=== PATIENT | male | born 1940 | race Caucasian/White ===

== ENCOUNTER 2016-11-18 13:55 | Observation (INO) | payer OTHER ==
[2016-11-18] MEDS ORDERED: NS 1,000 ML IV ONE ×2 (14:07→14:41)
[2016-11-18 14:14] LABS: % IMMATURE GRANULYOCYTES 0.4 % (0.0-1.1); ABSOLUTE IMMATURE GRANULOCYTES 0.04 10^3/uL (0.00-0.10); ADD DIFF? NO; ADD MORPH? NO; ADD SCAN? NO; ATYPICAL LYMPHOCYTE FLAG 0 (0-99); FRAGMENT RBC FLAG 0 (0-99); HEMATOCRIT 42.2 % (40.0-51.0); HEMOGLOBIN 14.7 g/dL (13.7-17.5); LEFT SHIFT FLG 0 (0-99); LIPEMIA HEMOLYSIS FLAG 90 (0-99); MEAN CELL HEMOGLOBIN 30.6 pg (27.9-34.1); MEAN CELL HEMOGLOBIN CONCENTR. 34.8 g/dL (32.4-36.7); MEAN CELL VOLUME 87.7 fL (81.5-99.8); MEAN PLATELET VOLUME 8.9 fL (8.7-11.7); PLATELET CLUMPS FLAG 0 (0-99); PLATELET COUNT 374 10^3/uL (150-400); RED BLOOD CELL COUNT 4.81 10^6/uL (4.40-6.38); RED CELL DISTRIBUTION WIDTH 12.7 % (11.5-15.2)
--- NOTE | 2016-11-18 14:14 | CPEKG ---
Heart Rate: 66 RR Interval: 909 P-R Interval: 140 QRSD Interval: 102 QT Interval: 416 QTC Interval: 436 P Davenport: 12 QRS Davenport: 39 T Wave Davenport: 20 EKG Severity - NORMAL ECG - EKG Impression: SINUS RHYTHM Electronically Signed By: Nadir Morin 18-Nov-2016 15:30:55
[2016-11-18 14:21] LABS: INR 1.05 (0.83-1.16); PROTIME(PATIENT) 13.4 SEC (12.0-15.0)
[2016-11-18 14:22] LABS: APTT 28.6 SEC (23.0-38.0)
[2016-11-18 14:23] LABS: ANION GAP 13 mEq/L (8-16); CARBON DIOXIDE 22 mEq/l (22-31); CHLORIDE 104 mEq/L (97-110); CREATININE 1.4 mg/dL (0.7-1.3); GLOMERULAR FILTRATION RATE 49; GLUCOSE 167 mg/dL (70-100); POTASSIUM 4.3 mEq/L (3.5-5.2); SODIUM 139 mEq/L (134-144)
[2016-11-18 14:35] LABS: TROPONIN I < 0.012 ng/mL (0.000-0.034)
--- NOTE | 2016-11-18 14:44 | EDPHY ---
H & P Stated Complaint: hypotensive, pale diaphoretic Source: Patient Exam Limitations: No limitations - Personal History Current Tetanus/Diphtheria Vaccine: Yes Current Tetanus Diphtheria and Acellular Pertussis (TDAP): Yes - Medical/Surgical History Hx Asthma: No Hx Chronic Respiratory Disease: No Hx Diabetes: No Hx Cardiac Disease: No Hx Renal Disease: No Hx Cirrhosis: No Hx Alcoholism: No Hx HIV/AIDS: No Hx Splenectomy or Spleen Trauma: No Other PMH: HTN, cataracts, BPH, nasal polyps - Family History Significant Family History: No pertinent family hx - Social History Smoking Status: Never smoked Alcohol Use: None Drug Use: None <Nadir Morin - Last Filed: 11/18/16 15:28> <Jc Irvin - Last Filed: 11/18/16 17:40> Time Seen by Provider: 11/18/16 14:08 HPI/ROS: This patient had a presyncopal episode across the [place] in the [facility] while seeing Dr. rene for a routine annual exam. She explains that the patient was fasting for cholesterol and while being interviewed he develops pallor, diaphoresis lightheadedness and dim vision. His symptoms improved when he was placed in supine position he was wheeled over by cart for further evaluation in our emergency department. The patient admits that he did start with a dry cough 2 days ago that seemed mild him. No other new symptoms prior to today's visit. He has not had an episode of presyncope before. He did have an episode of dizziness 5 years ago workup with a negative Holter monitor and normal carotid Dopplers at that time. After workup the prior episode 5 years ago of dizziness was thought to have been vertigo. The patient has not had any recent vertigo symptoms prior to today's presyncopal episode. ROS: He did notice any fevers or chills at home. He did not check his temperature recently. He did feel more fatigued than usual. No other constitutional symptoms. HEENT: No URI symptoms. No sinus pain. No sore throat. Pulmonary: No pleuritic pain. He did notice dyspnea. Cardiovascular: No heart palpitations or chest pain. No lower extremity swelling or calf pain. : No urinary symptoms. No testicular pain or swelling. Integumentary: Diaphoretic and pale with today's episode. No rash. Psychiatric: Denies any complaints Endocrine: No complaints Complete review of symptoms is otherwise negative. (Nadir Morin) - Social History Additional Social History: Works as a business support professional. Lives alone. (Nadir Morin) - Physical Exam Exam: Vital signs notable for hypoxia to 88% on room air pulse 67, blood pressure 108/ 67 afebrile. General Appearance: Alert, no distress. Eyes: Pupils equal and round no pallor or injection. ENT, Mouth: Mucous membranes moist. Respiratory: Diminished at right base. There are no retractions, lungs are clear to auscultation. Cardiovascular: Regular rate and rhythm. No murmur gallop or rub. Gastrointestinal: Abdomen is soft and nontender, no masses, bowel sounds normal. Neurological: GCS 15 Skin: Warm and dry, no rashes. Musculoskeletal: Neck is supple nontender. Extremities are symmetrical, full range of motion. Psychiatric: Mood and affect normal DIFFERENTIAL DIAGNOSIS: After history and physical exam differential diagnosis was considered for presyncopal while fasting, pneumonia, PE, IA, dysrhythmia ( Nadir Morin) Constitutional: Initial Vital Signs O2 Sat (%) 93 11/18/16 14:00 O2 Delivery Mode Room Air O2 (L/minute) 3 Allergies/Adverse Reactions: calcium carbonate Allergy (Severe, Verified 11/18/16 14:12) Other-Enter Comments Sulfa (Sulfonamide Antibiotics) Allergy (Verified 11/18/16 14:12) Home Medications: Medication Instructions Recorded Acetaminophen [Tylenol ES 500 mg 500 mg PO Q6 PRN 09/30/15 (*)] Atenolol [Tenormin 25 mg (*)] 12.5 mg PO HS 09/30/15 Doxazosin Mesylate 2 mg PO HS 09/30/15 Naproxen Sodium [Aleve 220 MG (*)] 220 mg PO BID PRN 09/30/15 Ranitidine HCl 150 mg PO DAILY PRN 09/30/15 Tamsulosin HCl 0.4 mg PO HS 09/30/15 Triamterene/Hctz 75/50 [Maxzide 0.25 tab PO DAILY 09/30/15 75-50 mg Tab (*)] Medical Decision Making - Diagnostics Imaging: I viewed and interpreted images myself <Nadir Morin - Last Filed: 11/18/16 15:28> - Diagnostics Imaging: Discussed imaging studies w/ call out operator Radiologist, I viewed and interpreted images myself <Jc Irvin - Last Filed: 11/18/16 17:40> - Diagnostics EKG Interpretation: 12 lead EKG performed at 2:12 p.m. reveals sinus rhythm at 66 Intervals: Normal Wever: Normal ST segments: Normal Overall assessment: Normal EKG (Nadir Morin) Imaging Results: Imaging Impressions Chest X-Ray 11/18/16 14:08 Impression: 1. Mild right pleural effusion with adjacent compressive atelectatic change. Consolidation is felt to be possible but less likely. 2. Interval fractures of the posterior lateral left sixth and seventh ribs with callus formation. Chest/Thorax CTA 11/18/16 14:26 Impression: 1. No evidence of pulmonary embolus using CT protocol. 2. Mild right pleural effusion with loculated component and adjacent compressive atelectatic change. 3. Peribronchial thickening in the perihilar region bilaterally more prominent to the right lower lobe. Rule out underlying bronchitis, viral process, or reactive airways disease. 4. Mildly enlarged spleen. 5. Incidental pericardial cyst on the right. 6. Reactive lymph nodes suspected around the right hilum, subcarina, and distal right paratracheal region. Findings discussed with Dr. Erick Irvin at 15:53 hour, 11/18/2016. Chest x-ray: Right basilar infiltrate with small effusion by my interpretation. (Nadir Morin) ED Course/Re-evaluation: IV normal saline bolus, blood work and blood cultures Patient placed in on the monitor with stable sinus rhythm without dysrhythmia. He maintains normal mental status since arrival from the [facility]. A review of his labs reveals leukocytosis and significantly elevated D-dimer. Inverted CT angio chest rule out PE and started Rocephin for infiltrate right base. Patient will need to be admitted for pneumonia versus PE with pneumonia. I counseled him regarding this. Patient is also true Zithromax p.o. I spoke with Dr. Nita Reyes, hospitalist at [facility] accepts patient for transfer to PCU. Discussion: Patient with pneumonia presyncope warranting admission with CT angio results pending. I spoke with Dr. Irvin, oncoming emergency physician regarding the pending CT angio test. He will follow up on this test result and relate this study outcome to Dr. Reyes. He will also initiate treatment for PE if [address] is [address] angio. (Nadir Morin) I took over care of this patient at 3:15 p.m.. The patient is awaiting results of a CT angiogram of his chest to evaluate for pulmonary embolism. 4:15 p.m., patient evaluated by myself. Resting comfortably at this time. Patient currently asymptomatic. Results of his CT scan discussed with him. He is waiting transfer by ambulance to [facility]. He has been admitted to the hospitalist service. The admitting hospitalist, Dr. Nita Reyes was notified of the results of his CT scan. 4:30 p.m., the patient was to be transferred by ambulance to [facility]. He is now refusing this. He wants his friend to take him over there. In my professional opinion he has capacitance to make decisions and clearly understands the risks as well as my concerns including but not limited to low blood oxygen levels, which I discussed in detail with him, of not being transported to [facility] by ambulance. A friend will take him over to [facility] shortly. His remaining emergency department course under my care has been uneventful. (Jc Irvin) - Data Points Laboratory Results: Laboratory Results 11/18/16 14:00 11/18/16 14:00 11/18/16 11/18/16 11/18/16 14:00 14:00 14:00 WBC RBC Hgb POC Hgb Hct POC Hct MCV MCH MCHC RDW Plt Count MPV Neut % (Auto) Lymph % (Auto) [place] % (Auto) Eos % (Auto) Baso % (Auto) Nucleat RBC Rel Count Absolute Neuts (auto) Absolute Lymphs (auto) Absolute Monos (auto) Absolute Eos (auto) Absolute Basos (auto) Absolute Nucleated RBC Immature Gran % Immature Gran # PT INR APTT D-Dimer POC Sodium Sodium 139 mEq/L mEq/L (134-144) POC Potassium Potassium 4.3 mEq/L mEq/L (3.5-5.2) POC Chloride Chloride 104 mEq/L mEq/L (97-110) Carbon Dioxide 22 mEq/l mEq/l (22-31) Anion Gap 13 mEq/L mEq/L (8-16) POC BUN BUN 17 mg/dL mg/dL (7-23) Creatinine 1.4 mg/dL H mg/dL (0.7-1.3) POC Creatinine Estimated GFR 49 Glucose 167 mg/dL H mg/dL (70-100) POC Glucose Calcium 9.0 mg/dL mg/dL (8.5-10.4) Troponin I < 0.012 ng/mL ng/mL (0.000-0.034) NT-Pro-B Natriuret Pep 218 pg/mL pg/mL (0-450) Lipase 37 IU/L IU/L (23-300) 11/18/16 11/18/16 11/18/16 14:00 14:00 13:56 WBC 11.12 10^3/uL H 10^3/uL (3.80-9.50) RBC 4.81 10^6/uL 10^6/uL (4.40-6.38) Hgb 14.7 g/dL g/dL (13.7-17.5) POC Hgb 14.6 gm/dL gm/dL (13.7-17.5) Hct 42.2 % % (40.0-51.0) POC Hct 43 % % (40-51) MCV 87.7 fL fL (81.5-99.8) MCH 30.6 pg pg (27.9-34.1) MCHC 34.8 g/dL g/dL (32.4-36.7) RDW 12.7 % % (11.5-15.2) Plt Count 374 10^3/uL 10^3/uL (150-400) MPV 8.9 fL fL (8.7-11.7) Neut % (Auto) 71.1 % % (39.3-74.2) Lymph % (Auto) 14.9 % L % (15.0-45.0) [place] % (Auto) 5.6 % % (4.5-13.0) Eos % (Auto) 7.4 % % (0.6-7.6) Baso % (Auto) 0.6 % % (0.3-1.7) Nucleat RBC Rel Count 0.0 % % (0.0-0.2) Absolute Neuts (auto) 7.91 10^3/uL H 10^3/uL (1.70-6.50) Absolute Lymphs (auto) 1.66 10^3/uL 10^3/uL (1.00-3.00) Absolute Monos (auto) 0.62 10^3/uL 10^3/uL (0.30-0.80) Absolute Eos (auto) 0.82 10^3/uL H 10^3/uL (0.03-0.40) Absolute Basos (auto) 0.07 10^3/uL 10^3/uL (0.02-0.10) Absolute Nucleated RBC 0.00 10^3/uL 10^3/uL (0-0.01) Immature Gran % 0.4 % % (0.0-1.1) Immature Gran # 0.04 10^3/uL 10^3/uL (0.00-0.10) PT 13.4 SEC SEC (12.0-15.0) INR 1.05 (0.83-1.16) APTT 28.6 SEC SEC (23.0-38.0) D-Dimer 3.43 ug/mLFEU H ug/mLFEU (0.00-0.50) POC Sodium 140 mEq/L mEq/L (134-144) Sodium POC Potassium 4.1 mEq/L mEq/L (3.3-5.0) Potassium POC Chloride 104 mEq/L mEq/L (97-110) Chloride Carbon Dioxide Anion Gap POC BUN 17 mg/dL mg/dL (7-23) BUN Creatinine POC Creatinine 1.5 mg/dL H mg/dL (0.7-1.3) Estimated GFR Glucose POC Glucose 172 mg/dL H mg/dL (70-100) Calcium Troponin I NT-Pro-B Natriuret Pep Lipase Medications Given: Discontinued Medications Azithromycin (Zithromax) 500 mg PO EDNOW ONE PRN Reason: Protocol Stop: 11/18/16 15:13 Last Admin: 11/18/16 15:26 Dose: 500 mg Sodium Chloride (Ns) 1,000 mls @ 0 mls/hr IV EDNOW ONE; Wide Open PRN Reason: Protocol Stop: 11/18/16 14:08 Last Admin: 11/18/16 14:08 Dose: 1,000 mls Ceftriaxone Sodium 1 gm/ (Sodium Chloride) 100 mls @ 200 mls/hr IV EDNOW ONE PRN Reason: Protocol Stop: 11/18/16 15:04 Last Admin: 11/18/16 14:59 Dose: 100 mls Sodium Chloride (Ns) 1,000 mls @ 0 mls/hr IV ONCE ONE PRN Reason: Wide Open Stop: 11/18/16 14:42 Last Admin: 11/18/16 14:53 Dose: 1,000 mls Point of Care Test Results: 11/18/16 13:56 POC Sodium 140 POC Potassium 4.1 POC Chloride 104 POC BUN 17 POC Creatinine 1.5 H POC Glucose 172 H Departure <Nadir Morin C - Last Filed: 11/18/16 15:28> <Jc Irvin - Last Filed: 11/18/16 17:40> - Departure Disposition: [facility] Inpatient Acute Clinical Impression: Pre-syncope, Hypoxia, Pneumonia Condition: Fair
[2016-11-18] MEDS ORDERED: IOPAMIDOL (ISOVUE 370) 100 ML BTL IV ONE (14:51)
[2016-11-18] MEDS ORDERED: AZITHROMYCIN 250 MG TAB PO ONE (15:12)
[2016-11-18] MEDS ORDERED: ONDANSETRON 4 MG/2 ML VIAL IVP PRN (19:36)
[2016-11-18] MEDS ORDERED: ACETAMINOPHEN 325 MG TAB PO PRN (19:36)
[2016-11-18] MEDS ORDERED: ONDANSETRON DISINTEGRATING 4 MG TAB PO PRN (19:36)
[2016-11-18] MEDS ORDERED: NS 1,000 ML IV SCH (20:15)
--- NOTE | 2016-11-18 20:40 | GHP ---
[f rep st] HISTORY AND PHYSICAL DATE OF ADMISSION: 11/18/2016 CHIEF COMPLAINT: 1. Pneumonia. 2. Hypotension. HISTORY OF PRESENT ILLNESS: A 76-year-old male with history of hypertension, BPH, nasal polyps, who presented to his PCP for a normal physical today. He became pale, diaphoretic and presyncopal. Initial blood pressure was 76/48, repeat was 80/58. Per his photocopying equipment mechanic, he has not been feeling well for two weeks. Two weeks ago, he awoke from sleep with right-sided chest pain and confused. Since then it has been, but not associated with any radiation, nausea , or numbness. Decreased PO intake. Nonproductive cough for the past 2-3 days. No change in BP. 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 No F/C/S/N/V/D. REVIEW OF SYSTEMS: I completed a 10-point review of systems, negative except as noted in HPI. PAST MEDICAL HISTORY: Hypertension, BPH, nasal polyps, cataract. PAST SURGICAL HISTORY: Nasal polyp, eye surgery, cholecystectomy. FAMILY HISTORY: Mother with gallbladder cancer. SOCIAL HISTORY: No illicits, tobacco or alcohol. 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 His photocopying equipment mechanic is here with him, and she actually lives in a different home in [place]. He lives in [place]. HOME MEDICATIONS: Triamterene/HCTZ 75/50 mg daily, tamsulosin 0.5 mg at bedtime , aspirin 150 mg p.r.n., naproxen p.r.n., doxazosin 2 mg at bedtime, atenolol 12.5 mg at bedtime, Tylenol. PHYSICAL EXAMINATION: VITAL SIGNS: Temperature 36.9, blood pressure now 128/ 70 (initially 76/46), now 108/79, heart rate in the 90s, respirations 16, 93% on room. GENERAL: Overweight male, well appearing, no acute distress. HEENT: PERRLA. EOMI. Mildly dry mucous membranes. CV: Regular rate and rhythm. No murmurs, gallops, rubs. LUNGS: Decreased breath sounds right lower base. ABDOMEN: Obese, soft, nontender, nondistended. Positive bowel sounds. : No suprapubic tenderness. MUSCULOSKELETAL: 5/5 upper and lower extremity strength. NEURO: 2 through 12 intact. PSYCHIATRIC: Alert and oriented x3. LABORATORY DATA: WBC 11, hemoglobin 14, hematocrit 42, platelets 374. Sodium 139, potassium 4.3, chloride 104, creatinine is 1.4, glucose 167. Troponin less than 0.012. BNP is 218. Lipase is 37. Creatinine 1.4, baseline 0.9. D- dimer 3.43. EKG, personally reviewed by me: Normal sinus rhythm, ST flattening in V2, V3. Chest x-ray is personally reviewed by me: Mild right pleural effusion, costophrenic angle is blunted. CTA: No evidence of PE. Mild right pleural effusion with loculated component. Peribronchial thickening. Mildly enlarged spleen. ASSESSMENT AND PLAN: 1. Hypotension: Differential includes cardiac versus infection versus vasovagal. His creatinine and recent decreased p.o. intake are suggestive of prerenal. Check urine lytes. Troponin and EKG negative for ischemia. No evidence of PE on CTA. IVFs. 2. Right lower lobe pneumonia: CXR with effusion mildly loculated. Cont IV abx at this time. Can consider CT chest to further eval, but doing well now with min leukocytosis and afebrile. Check a procalcitonin and respiratory culture.Blood cultures are pending. 3. Acute kidney injury: Baseline is 0.9. Endorses decreased p.o. intake. IV fluids, urine lytes, repeat in the morning. 4. Hypertension: Hold antihypertensives with hypotension. 5. Benign prostatic hypertrophy: Again, hold home medications with hypotension. 6. Diet: Regular. 7. Deep venous thrombosis prophylaxis: Lovenox. 8. Disposition: The patient warrants observation admission, given acute pneumonia. Requires IV antibiotics and IV fluids. /[id number]/MODL MTDD
[2016-11-18] MEDS ORDERED: FAMOTIDINE 20 MG TAB PO PRN (21:00)
[2016-11-19 05:22] LABS: HEMATOCRIT 37.5 % (40.0-51.0); HEMOGLOBIN 12.7 g/dL (13.7-17.5); MEAN CELL HEMOGLOBIN 30.9 pg (27.9-34.1); MEAN CELL HEMOGLOBIN CONCENTR. 33.9 g/dL (32.4-36.7); MEAN CELL VOLUME 91.2 fL (81.5-99.8); RED BLOOD CELL COUNT 4.11 10^6/uL (4.40-6.38); RED CELL DISTRIBUTION WIDTH 12.6 % (11.5-15.2)
[2016-11-19 06:14] LABS: ANION GAP 10 mEq/L (8-16); CALCIUM 8.4 mg/dL (8.5-10.4); CARBON DIOXIDE 23 mEq/l (22-31); CHLORIDE 107 mEq/L (97-110); CREATININE 1.2 mg/dL (0.7-1.3); GLOMERULAR FILTRATION RATE 59; GLUCOSE 90 mg/dL (70-100); SODIUM 140 mEq/L (134-144)
[2016-11-19] MEDS ORDERED: AZITHROMYCIN 250 MG TAB PO SCH (09:00)
[2016-11-19] MEDS ORDERED: ENOXAPARIN 40 MG/0.4 ML SYR SC SCH (09:00)
[2016-11-19] MEDS ORDERED: ALBUTEROL 3 ML DEYVIAL IH PRN (09:46)
--- NOTE | 2016-11-19 09:51 | HOSPPROG ---
Hospitalist Progress Note Assessment/Plan: Acute hypoxemic respiratory failure in setting of rhinovirus / enterovirus and right pleural effusion - suspect pleural effusion is chronic as these were present on CT in 09/2015 and the loculated appearance suggests some degree of chronicity. He is still requiring 2 LPM O2 satting in low 90's. PCT 0.08 making bacterial process unlikely. Also suspect element of SMILEY and obesity hypoventilation. -D/C atbx -add scheduled duonebs and prn albuterol nebs -wean O2 as able, may need home O2 -check echo for further workup of pleural effusion -needs outpt sleep study Hypotension - resolved with IVF's -echo as above WINSTON - resolved with IVF's Dispo - change to inpt, will require ongoing hospitalization for further management and evaluation of his acute respiratory failure and pleural effusion Subjective: Pt feel okay, has audible wheezing. Denies CP, SOB, or fever. Some coughing. Still requiring O2. Objective: Vital Signs Temp Pulse Resp BP Pulse Ox 36.6 C 66 16 134/81 H 95 11/19/16 07:19 11/19/16 07:19 11/19/16 07:19 11/19/16 07:19 11/19/16 07:19 Microbiology 11/18/16 23:45 Respiratory Panel (PCR) - Final Nasal, Sinus - Swab Human Rhinovirus/Enterovirus Laboratory Results 11/19/16 03:41 11/19/16 03:41 11/18/16 11/19/16 11/20/16 05:59 05:59 05:59 Intake Total 3500 Balance 3500 PT 13.4 SEC (12.0-15.0) 11/18/16 14:00 INR 1.05 (0.83-1.16) 11/18/16 14:00 - Physical Exam Constitutional: no apparent distress, obese Eyes: PERRL Ears, Nose, Mouth, Throat: moist mucous membranes Cardiovascular: regular rate and rhythym Respiratory: no respiratory distress, other (diminished at bases) Gastrointestinal: normoactive bowel sounds, soft, non-tender abdomen Skin: warm Musculoskeletal: full muscle strength Neurologic: AAOx3 Psychiatric: interacting appropriately ICD10 Worksheet Patient Problems: Problems Problem Status Onset Hypoxia Acute Pneumonia Acute Pre-syncope Acute Cholecystitis Acute
[2016-11-19] MEDS ORDERED: guaiFENesin 600 MG TAB.ER PO SCH (10:00)
[2016-11-19 11:31] VITALS: BP 139/109; PULSE 90; RESP 16; TEMP 98.6; O2SAT 90
[2016-11-19] MEDS ORDERED: IPRATROPIUM/ALBUTEROL 3 ML DEYVIAL IH SCH (12:00)
--- NOTE | 2016-11-19 14:03 | ASMTCMCOM ---
CM Note CM Note Notes: Pt is a 76 y/o man admitted w/ presyncope, pneumonia, elevated d-dimer and hypoxia. Pt will most likely d/c independent w/ supportive when medically stable. No therapies ordered at this time. CM available for changes. Date Signed: 11/19/2016 02:02 PM Electronically Signed By:BUDDY Benedict
--- NOTE | 2016-11-19 14:46 | ECHO ---
[email or web address] [address] [address] [address]: [phone] Fax: Transthoracic Echocardiogram Name: ASHWIN THOMAS MR#: [id number] Study Date: 11/19/2016 Study Time: 11:06 AM Date of : 1940 Age: 76 year(s) Height: 172.7 cm (68 in.) Weight: 100.7 kg (222 lb.) BSA: 2.14 m2 Gender: Male Examination: Echo Indication: Image Quality: Technically Difficult Contrast: Requested by: Celeste Hendricks BP: 134 mmHg/81 mmHg Heart Rate: 80 bpm Rhythm: Normal sinus rhythm Indication: Procedure Staff Cinder Dump Crane Operator: Mellissa Rivas Reading Physician: Dirk Hall Conclusions: Normal size left ventricle. Mild concentric LV hypertrophy. Normal global systolic LV function. The ejection fraction, measured by Simpsons method, is 72 %. Grade 1 diastolic dysfunction (abnormal relaxation). There are no significant valvular abnormalities. Probable anteroapical fat pad. Cannot rule out small effusion. No suggestion of tamponade. Measurements: Chambers Valvular Assessment AV/MV Valvular Assessment TV/PV Normal Normal Normal Name Value Range Name Value Range Name Value Range Ao Kaylah (MM): 3.4 cm (2.2 cm-3.7 AV Vmax: 1.58 m/s (1 m/s-1.7 PV Vmax: 1.04 cm/s (0.6 m/s-0.9 cm) m/s) m/s) IVSd (2D): 1.1 cm (0.6 cm-1.1 AV maxP mmHg ( - ) PV PGmax: 4 mmHg ( - ) cm) LVOT Vmax: 1.29 m/s (0.7 m/s-1.1 LVDd (2D): 4.4 cm (4.2 cm-5.9 m/s) cm) MV E Vmax: 0.74 cm/s ( - ) LVDs (2D): 2.7 cm (2.1 cm-4 MV A Vmax: 1.13 cm/s ( - ) cm) MV E/A: 0.65 ( - ) LVPWd (2D): 1.1 cm (0.6 cm-1 cm) LVEF (BP): 72 % (>=55 %) RVDd(2D): 3.3 cm (1.9 cm-3.8 cmmm) Continued Measurements: Chambers Valvular Assessment AV/MV Name Value Name Value Patient: ASHWIN THOMAS Study Date: 11/19/2016 Page 1 of 2 11:06 AM LA Area: 21.4 cm2 MV DecTime: 296 LA Volume: 46 ml MV E' Septal: 0.07 m/s LA Volume Index: 21.5 ml/m2 MV E/E' Septal: 11.30 TAPSE: 2.3 cm MV E/E' Lateral: 9.40 RA Area: 16.0 cm2 Additional Vessels Name Value Ao Ascendin.6 cm Findings: Left Ventricle: Normal size left ventricle. Mild concentric LV hypertrophy. Normal global systolic LV function. The ejection fraction, measured by Simpsons method, is 72 %. No regional wall motion abnormality. All scored wall segments are normal. Grade 1 diastolic dysfunction (abnormal relaxation). Right Ventricle: Normal size right ventricle. Normal RV function. Left Atrium: The left atrium is normal in size. Right Atrium: The right atrium is borderline dilated. Mitral Valve: The mitral valve is normal in appearance. There is no significant mitral valve regurgitation. Aortic Valve: The aortic valve is tri-leaflet and functions normally. There is no aortic valve regurgitation. Tricuspid Valve: The tricuspid valve appears normal. There is no tricuspid valve regurgitation. Pulmonic Valve: Pulmonary valve not well visualized. Pericardium: Pericardial effusion vs fat pad. Probable anteroapical fat pad. Cannot rule out small effusion. No suggestion of tamponade. (No Signature Object) Wall Motion Scores Patient: ASHWIN THOMAS Study Date: 11/19/2016 Page 2 of 2 11:06 AM [id number]
--- NOTE | 2016-11-20 01:41 | GDS ---
[f rep st] DISCHARGE SUMMARY DISCHARGE DIAGNOSES: 1. Hypoxemia, resolved. 2. Upper respiratory infection secondary to rhinovirus and enterovirus. 3. Right pleural effusion, likely chronic. 4. Hypotension, resolved with IV fluids. 5. Acute kidney injury, resolved with IV fluids. HISTORY: For details please see dictated history and physical dated November 18, 2016. In brief, t he patient is a 76-year-old male with a history of hypertension, who presented to the emergency depar tment from his primary care physician's office where he planned to have a physical exam and was found to be diaphoretic and presyncopal with a blood pressure of 80/58. He was sent to the emergency depa rtment and admitted for further evaluation. HOSPITAL COURSE: The patient is admitted to the PCU. He had no hypotension here in the hospital. H is blood pressure on arrival was 108/67. He initially required 3 L of oxygen, though he was weaned o ff oxygen and maintained sats greater than 90% on room air at the time of discharge. I suspect his h ypoxemia is likely secondary to his acute upper respiratory viral infection. However, he very likely has underlying sleep apnea and possibly obesity hypoventilation syndrome playing a role. I recommen d he have an outpatient sleep study and close followup with his primary care physician. With respect to his right pleural effusion, this is mild and appeared loculated. I suspect this is chronic as it was present on his imaging during his hospitalization last year, as well. An echocardiogram is perf ormed for further evaluation. He does have grade 1 diastolic dysfunction, though he has no evidence of acute heart failure with a normal BNP and no evidence of pulmonary edema on chest x-ray. He has n ormal left ventricular function with an ejection fraction of 72%. No regional wall motion abnormalit ies. A CT pulmonary angiogram is negative for pulmonary embolism. Did show some peribronchial thick ening, likely secondary to his viral URI. At the time of discharge, he is hemodynamically stable. H is oxygen saturation is 92% with ambulation. DISPOSITION: Patient is discharged home in stable condition. DISCHARGE MEDICATIONS: Please see [facility] for complete updated outpatient medication list. New med ications on discharge include guaifenesin 1200 mg p.o. b.i.d. and albuterol 2 puffs inhaled q.4 hours p.r.n. Will continue all other outpatient medications as prescribed. FOLLOWUP: Follow up with Shankar Kruse, primary care in 3-5 days. /[id number]/MODL
--- NOTE | 2016-11-20 09:21 | ASDISCHSUM ---
Discharge Information Plan Status:Home with No Needs Medically Cleared to Leave:11/19/2016 Discharge Date:11/19/2016 04:45 PM CM D/C Disposition: ADT D/C Disposition:Home, Routine, Self-Care Projected Discharge Date:11/19/2016 12:00 AM Transportation at D/C: Discharge Delay Reason: Follow-Up Date:11/19/2016 12:00 AM Discharge Slot: Final Diagnosis: Placement Information Patient Contact Information Contact Name:GODFREY Relationship:Stephy Address: Work Phone: City:[place] Alternate Phone: State[place] Code[place] Email: Financial Information Financial Class:Medicare Advantage Plans Primary Plan Desc:[facility] ADV[employer]AGE PLANS Primary Plan Number:[id number] Secondary Plan Desc: Secondary Plan Number: Assessment Information [facility] CM Progress Note CM Note CM Note Notes: Pt is a 76 y/o man admitted w/ presyncope, pneumonia, elevated d-dimer and hypoxia. Pt will most likely d/c independent w/ supportive when medically stable. No therapies ordered at this time. CM available for changes. Date Signed: 11/19/2016 02:02 PM Electronically Signed By:BUDDY Benedict Intervention Information Intervention Type:*TRUDY-Signed Date of Service:11/19/2016 12:39 PM Patient Type:Observation Staff Member:Norma Becerril Hours: Discipline: Severity: Comment:
== END 2016-11-19 16:45 | disposition home or self-care (01) ==
LOC: SUPCPDRO 13:55 → CED 13:55 → INTOOBSV 15:12 → CEDHOLD 15:12 → F2W 18:45 → INTOOBSV 11-19 10:00 → OBSVTOIN 11-19 10:00
PROVIDERS: ADMIT Internal Medicine; ATTEND Internal Medicine
DX: J06.9 Acute upper respiratory infection, unspecified (principal); R09.02 Hypoxemia; B34.8 Other viral infections of unspecified site; B34.1 Enterovirus infection, unspecified; J90 Pleural effusion, not elsewhere classified; I50.30 Unspecified diastolic (congestive) heart failure; I95.9 Hypotension, unspecified; N17.9 Acute kidney failure, unspecified; I11.9 Hypertensive heart disease without heart failure; G47.33 Obstructive sleep apnea (adult) (pediatric); N40.0 Benign prostatic hyperplasia without lower urinary tract symptoms; Z88.2 Allergy status to sulfonamides
CPT/HCPCS: 71020; 71275; 93005; 93306; 96361; 96365; 99285; G0378; J0696; J1650; Q9967; 80048-PO; 82947-QW; 83690-PO; 83880-PO; 84484-PO; 85025-PO; 85378-PO; 85610-PO; 85730-PO; 87449-90

== ENCOUNTER → 2017-12-11 | Outpatient (CLI) | payer OTHER | LOC: CIMAGING 15:15 | PROVIDERS: ATTEND Family Medicine | DX: M47.892 Other spondylosis, cervical region (principal); I10 Essential (primary) hypertension | CPT/HCPCS: 72040-PO ==

== ENCOUNTER → 2017-12-15 | Outpatient (CLI) | payer OTHER | LOC: CIMAGING 13:55 | PROVIDERS: ATTEND Family Medicine | DX: M54.2 Cervicalgia (principal); N40.0 Benign prostatic hyperplasia without lower urinary tract symptoms | CPT/HCPCS: 72040-PO ==